=== PATIENT | male | born 1980 | race Caucasian/White ===

== ENCOUNTER 2016-03-06 16:41 | Emergency (ER) | payer SELFPAY ==
[~2016-03-06] VITALS: Ht 172.7 cm; Wt 70.0 kg
[~2016-03-06 16:41] MED LIST: PRIL40CA PO; ZOFR4TAB3 SL
[2016-03-06 16:48] VITALS: BP 127/76; PULSE 87; RESP 15; TEMP 98.2; O2SAT 97
--- NOTE | 2016-03-06 17:18 | PD ---
HPI Chief Complaint: Psychiatric Symptoms Time Seen by Provider: 17:13 Travel History International Travel<30 days: No Contact w/Intl Traveler<30days: No Traveled to known affect area: No History of Present Illness HPI 35-year-old male brought in under the ex parte act. Patient denies any medical or psychiatric issues at this time. Patient admits he had an argument with his father. Patient denies any medical issues. He has no known drug allergies. PFSH Past Medical History Medical History: Denies Significant Hx Past Surgical History Surgical History: No Previous Surgery Social History Alcohol Use: Yes Tobacco Use: Yes Substance Use: Yes (cocaine and meth) Allergies-Medications (Allergen,Severity, Reaction): Coded Allergies: No Known Allergies (Verified , 03/06/16) Reported Meds & Prescriptions Reported Meds & Active Scripts Active No Active Prescriptions or Reported Medications Review of Systems Except as stated in HPI: all other systems reviewed are Neg General / Constitutional: No: Fever Eyes: No: Visual changes HENT: No: Headaches Cardiovascular: No: Chest Pain or Discomfort Respiratory: No: Shortness of Breath Gastrointestinal: No: Abdominal Pain Genitourinary: No: Dysuria Musculoskeletal: No: Pain Skin: No Rash Neurologic: No: Weakness Psychiatric: No: Depression Endocrine: No: Polydipsia Hematologic/Lymphatic: No: Easy Bruising Physical Exam Narrative GENERAL: Patient appears in no acute distress. SKIN: Warm and dry. No signs of trauma. HEAD: Atraumatic. Normocephalic. EYES: Pupils equal and round. No scleral icterus. No injection or drainage. ENT: No nasal bleeding or discharge. Mucous membranes pink and moist. Pharynx is clear. NECK: Trachea midline. No JVD. CARDIOVASCULAR: Regular rate and rhythm. RESPIRATORY: No accessory muscle use. Clear to auscultation. Breath sounds equal bilaterally. MUSCULOSKELETAL: Extremities without clubbing, cyanosis, or edema. No obvious deformities. NEUROLOGICAL: Awake and alert. No obvious cranial nerve deficits. Motor grossly within normal limits. Five out of 5 muscle strength in the arms and legs. Normal speech. PSYCHIATRIC: Appropriate mood and affect; insight and judgment normal. Data Data Last Documented VS Vital Signs Date Time Temp Pulse Resp B/P Pulse Ox O2 Delivery O2 Flow Rate FiO2 03/06/16 16:48 98.2 87 15 127/76 97 Orders Complete Blood Count With Diff (03/06/16 17:12) Comprehensive Metabolic Panel (03/06/16 17:12) Drug Screen, Random Urine (03/06/16 17:12) Psych Screen (03/06/16 17:12) MDM Medical Decision Making Medical Screen Exam Complete: Yes Emergency Medical Condition: Yes Differential Diagnosis Ex Parte Act. Anger outburst. Possible mood disorder. Narrative Course Patient is medically stable at time of exam. Psychiatric labs ordered per protocol. Patient is medically stable for psychiatric evaluation. Diagnosis Primary Impression: Medical clearance for psychiatric admission Scripts No Active Prescriptions or Reported Meds Condition: Stable Nitin Yang Mar 06, 2016 17:18
[2016-03-06 18:25] LABS: BASOPHIL # 0.1 TH/MM3 (0-0.2); BASOPHIL % 0.8 % (0.0-2.0); EOSINOPHIL # 0.3 TH/MM3 (0-0.4); EOSINOPHIL % 3.9 % (0.0-4.0); HEMATOCRIT 40.6 % (39.0-51.0); HEMO FLAGS DIFF FINAL; LYMPHOCYTE # 1.9 TH/MM3 (1.0-4.8); MEAN CORPUSCULAR HGB CONC 33.7 % (32.0-36.0); MONO % 9.2 % (0.0-8.0); NEUT % 58.1 % (16.0-70.0); PLATELET COUNT 214 TH/MM3 (150-450); RED BLOOD COUNT 4.89 MIL/MM3 (4.50-5.90); RED CELL DISTRIBUTION WIDTH 15.5 % (11.6-17.2); WHITE BLOOD COUNT 6.9 TH/MM3 (4.0-11.0)
[2016-03-06 18:55] LABS: ALKALINE PHOSPHATASE 73 U/L (45-117); ALT (GPT) 809 U/L (12-78); ANION GAP 8 MEQ/L (5-15); AST (GOT) 607 U/L (15-37); BICARBONATE 28.4 MEQ/L (21.0-32.0); BLOOD UREA NITROGEN 16 MG/DL (7-18); CHLORIDE 104 MEQ/L (98-107); GLOMERULAR FILTRATION RATE 92 ML/MIN (>89); SODIUM (NA) 140 MEQ/L (136-145); TOTAL BILIRUBIN ADULT 0.2 MG/DL (0.2-1.0)
[2016-03-06 19:29] VITALS: BP 122/68; PULSE 64; RESP 16; O2SAT 98
[2016-03-06 21:03] VITALS: BP 133/66; PULSE 76; RESP 18; TEMP 97.6; O2SAT 99
[2016-03-06 21:41] LABS: AMPHETAMINE, URINE POS (NEG); BARBITURATES, URINE POS (NEG); COCAINE, URINE POS (NEG)
[2016-03-06 22:00] VITALS: BP 101/54; PULSE 77; RESP 19; O2SAT 99
[2016-03-07 02:01] VITALS: BP 104/61; PULSE 78; RESP 18; TEMP 97.3; O2SAT 100
[2016-03-07 06:21] VITALS: BP 114/59; PULSE 80; RESP 19; O2SAT 99
[2016-03-07 10:15] VITALS: BP 116/66; PULSE 96; RESP 18
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
== END 2016-03-07 13:52 | disposition home or self-care (01) ==
LOC: NEDAMB 16:41 → NEPJ 03-07 13:52
DX: F14.10 Cocaine abuse, uncomplicated (principal); F15.10 Other stimulant abuse, uncomplicated; F12.10 Cannabis abuse, uncomplicated; F13.10 Sedative, hypnotic or anxiolytic abuse, uncomplicated
CPT/HCPCS: 80053; 80307; 85025; 99284

== ENCOUNTER 2017-05-11 14:33 | Emergency (ER) | payer SELFPAY ==
[~2017-05-11] VITALS: Ht 170.2 cm; Wt 47.0 kg
[2017-05-11] MEDS ORDERED: SODIUM CHLOR 0.9% 1000 ML INJ 1,000 ML IV ONE (16:41)
[2017-05-11 16:43] VITALS: BP 128/61; PULSE 72; RESP 19; TEMP 98.6; O2SAT 98
[2017-05-11] MEDS ORDERED: SODIUM CHLORIDE 0.9% FLUSH 10 ML FLUSH IVF PRN (16:45)
[2017-05-11] MEDS ORDERED: NALOXONE HCL 2 MG/2 ML VIAL IV PUSH ONE (16:45)
--- NOTE | 2017-05-11 16:56 | PD ---
HPI Chief Complaint: OD/ Ingestion Time Seen by Provider: 16:41 Travel History International Travel<30 days: No Contact w/Intl Traveler<30days: No Traveled to known affect area: No History of Present Illness HPI 36-year-old male patient with history of IV drug use, presents to the ER today brought in by EMS, apparently had overdosed on heroin. He had been given Narcan by EMS several hours ago. Patient has been fairly noncooperative with EMS, gets agitated when awakened, refusing to answer questions. Modifying Factors: None Associated Signs & Symptoms: Heroin overdose Risk Factors: IV drug use [facility] Past Medical History Medical History: Denies Significant Hx Past Surgical History Surgical History: No Previous Surgery Social History Alcohol Use: Yes Tobacco Use: Yes Substance Use: Yes (HEROIN, METH) Allergies-Medications (Allergen,Severity, Reaction): Coded Allergies: No Known Allergies (Verified , 03/06/16) Reported Meds & Prescriptions Reported Meds & Active Scripts Active No Active Prescriptions or Reported Medications Review of Systems ROS Limitations: Uncooperative, Poor Historian Physical Exam Narrative GENERAL: Well-developed young male patient currently and mild distress. Sleeping, arousable, agitated. SKIN: Focused skin assessment warm/dry. HEAD: Abrasions over the nasal bridge, with obvious deformity of the nasal bridge. Normocephalic. EYES: Pupils equal and round. No scleral icterus. No injection or drainage. ENT: No nasal bleeding or discharge. Mucous membranes pink and moist. NECK: Trachea midline. No JVD. CARDIOVASCULAR: Regular rate and rhythm. No murmur appreciated. RESPIRATORY: No accessory muscle use. Clear to auscultation. Breath sounds equal bilaterally. GASTROINTESTINAL: Abdomen soft, non-tender, nondistended. Hepatic and splenic margins not palpable. MUSCULOSKELETAL: No obvious deformities. No clubbing. No cyanosis. No edema. NEUROLOGICAL: Somnolent, but arousable. No obvious cranial nerve deficits. Motor grossly within normal limits. Normal speech. PSYCHIATRIC: Somnolent, agitated when awoken, agitated mood and affect; insight and judgment poor Data Data Last Documented VS Vital Signs Date Time Temp Pulse Resp B/P (MAP) Pulse Ox O2 Delivery O2 Flow Rate FiO2 05/11/17 16:43 98.6 72 19 128/61 (83) 98 Room Air Orders Orders Electrocardiogram (05/11/17 16:41) Complete Blood Count With Diff (05/11/17 16:41) Comprehensive Metabolic Panel (05/11/17 16:41) Ct Brain W/O Iv Contrast(Rout) (05/11/17 16:41) Iv Access Insert/Monitor (05/11/17 16:41) Cath For Specimen (05/11/17 16:41) Ecg Monitoring (05/11/17 16:41) Oximetry (05/11/17 16:41) Naloxone Inj (Narcan Inj) (05/11/17 16:45) Sodium Chloride 0.9% Flush (Ns Flush) (05/11/17 16:45) Sodium Chlor 0.9% 1000 Ml Inj (Ns 1000 M (05/11/17 16:41) Drug Screen, Random Urine (05/11/17 16:41) Alcohol (Ethanol) (05/11/17 16:41) Tylenol (Acetaminophen) (05/11/17 16:41) Ct Facial Bones W/O Iv Cont (05/11/17 16:41) Labs Laboratory Tests Test 05/11/17 16:50 White Blood Count 7.6 TH/MM3 Red Blood Count 4.75 MIL/MM3 Hemoglobin 14.0 GM/DL Hematocrit 40.6 % Mean Corpuscular Volume 85.5 FL Mean Corpuscular Hemoglobin 29.4 PG Mean Corpuscular Hemoglobin Concent 34.4 % Red Cell Distribution Width 13.6 % Platelet Count 321 TH/MM3 Mean Platelet Volume 7.4 FL Neutrophils (%) (Auto) 46.7 % Lymphocytes (%) (Auto) 39.5 % Monocytes (%) (Auto) 10.0 % Eosinophils (%) (Auto) 2.9 % Basophils (%) (Auto) 0.9 % Neutrophils # (Auto) 3.5 TH/MM3 Lymphocytes # (Auto) 3.0 TH/MM3 Monocytes # (Auto) 0.8 TH/MM3 Eosinophils # (Auto) 0.2 TH/MM3 Basophils # (Auto) 0.1 TH/MM3 CBC Comment DIFF FINAL Differential Comment Blood Urea Nitrogen 11 MG/DL Creatinine 0.89 MG/DL Random Glucose 87 MG/DL Total Protein 7.6 GM/DL Albumin 3.6 GM/DL Calcium Level 9.0 MG/DL Alkaline Phosphatase 61 U/L Aspartate Amino Transf (AST/SGOT) 31 U/L Alanine Aminotransferase (ALT/SGPT) 24 U/L Total Bilirubin 0.5 MG/DL Sodium Level 138 MEQ/L Potassium Level 3.9 MEQ/L Chloride Level 101 MEQ/L Carbon Dioxide Level 28.1 MEQ/L Anion Gap 9 MEQ/L Estimat Glomerular Filtration Rate 97 ML/MIN Acetaminophen Level LESS THAN 2.0 MCG/ML Ethyl Alcohol Level LESS THAN 3 MG/DL MDM Medical Decision Making Medical Screen Exam Complete: Yes Emergency Medical Condition: Yes Medical Record Reviewed: Yes Interpretation(s) Laboratory Tests Test 05/11/17 16:50 Monocytes (%) (Auto) 10.0 % (0.0-8.0) Last [address] 05/11/17 1641 Signed Impressions: Service Date/Time: Thursday, May 11, 2017 17:15 - CONCLUSION: Unremarkable CT scan of the brain. Rosalio Guardado MD Differential Diagnosis Heroin overdose, rule out coingestions, rule out intracranial injuries Narrative Course CT the brain did not show any signs of acute intracranial injuries and facial bones not show any signs of acute fractures. His lab work was fairly unremarkable. Patient is arousable in the ER and does not have signs of respiratory distress so he was watched until sober. Planning to release once sober. Patient was reevaluated at 7 PM, awake, but trying to sleep, answering questions appropriately, and gets upset at me when I turn on the lights. He was seen by EMS at 1355, had taken heroin before that. Vital signs have been stable in the ER. My plan would be to release him at 8 PM. Diagnosis Primary Impression: Heroin overdose Scripts No Active Prescriptions or Reported Meds Disposition: 01 DISCHARGE HOME Condition: Stable Kai Worley MD May 11, 2017 16:56
[2017-05-11 17:15] LABS: AUTOMATED NEUTROPHIL # 3.5 TH/MM3 (1.8-7.7); BASOPHIL # 0.1 TH/MM3 (0-0.2); BASOPHIL % 0.9 % (0.0-2.0); EOSINOPHIL # 0.2 TH/MM3 (0-0.4); EOSINOPHIL % 2.9 % (0.0-4.0); HEMATOCRIT 40.6 % (39.0-51.0); LYMPH % 39.5 % (9.0-44.0); MEAN CELL VOLUME 85.5 FL (80.0-100.0); MEAN CORPUSCULAR HEMOGLOBIN 29.4 PG (27.0-34.0); MEAN CORPUSCULAR HGB CONC 34.4 % (32.0-36.0); MEAN PLATELET VOLUME 7.4 FL (7.0-11.0); MONOCYTE # 0.8 TH/MM3 (0-0.9); NEUT % 46.7 % (16.0-70.0); PLATELET COUNT 321 TH/MM3 (150-450); RED BLOOD COUNT 4.75 MIL/MM3 (4.50-5.90); RED CELL DISTRIBUTION WIDTH 13.6 % (11.6-17.2); WHITE BLOOD COUNT 7.6 TH/MM3 (4.0-11.0)
[2017-05-11 17:32] LABS: ALBUMIN 3.6 GM/DL (3.4-5.0); AST (GOT) 31 U/L (15-37); BICARBONATE 28.1 MEQ/L (21.0-32.0); BLOOD UREA NITROGEN 11 MG/DL (7-18); CHLORIDE 101 MEQ/L (98-107); CREATININE 0.89 MG/DL (0.60-1.30); GLOMERULAR FILTRATION RATE 97 ML/MIN (>89); GLUCOSE,RANDOM 87 MG/DL (74-106); SODIUM (NA) 138 MEQ/L (136-145)
--- NOTE | 2017-05-11 17:34 | RADRPT ---
EXAM DATE/TIME: 05/11/2017 17:15 [facility] COMPARISON: No previous studies available for comparison. INDICATIONS : Altered mental status. RADIATION DOSE: 36.53 CTDIvol (mGy) MEDICAL HISTORY : None SURGICAL HISTORY : None. ENCOUNTER: Initial ACUITY: 1 day PAIN SCALE: 0/10 LOCATION: cranial TECHNIQUE: Multiple contiguous axial images were obtained of the head. Using automated exposure control and adj ustment of the mA and/or kV according to patient size, radiation dose was kept as low as reasonably a chievable to obtain optimal diagnostic quality images. DICOM format image data is available electro nically for review and comparison. FINDINGS: CEREBRUM: The ventricles are normal for age. No evidence of midline shift, mass lesion, hemorrhage or acute in farction. No extra-axial fluid collections are seen. POSTERIOR FOSSA: The cerebellum and brainstem are intact. The 4th ventricle is midline. The cerebellopontine angle i s unremarkable. EXTRACRANIAL: The visualized portion of the orbits is intact. SKULL: The calvaria is intact. No evidence of skull fracture. CONCLUSION: Unremarkable CT scan of the brain. Rosalio Guardado MD on May 11, 2017 at 17:31 Board Certified Radiologist. This report was verified electronically.
[2017-05-11 17:36] LABS: ALKALINE PHOSPHATASE 61 U/L (45-117); ALT (GPT) 24 U/L (12-78); TOTAL BILIRUBIN ADULT 0.5 MG/DL (0.2-1.0); TOTAL PROTEIN 7.6 GM/DL (6.4-8.2)
--- NOTE | 2017-05-11 17:38 | RADRPT ---
EXAM DATE/TIME: 05/11/2017 17:15 [facility] COMPARISON: No previous studies available for comparison. INDICATIONS : Altered mental status. RADIATION DOSE: 52.84 CTDIvol (mGy) MEDICAL HISTORY : None SURGICAL HISTORY : None. ENCOUNTER: Initial ACUITY: 1 day PAIN SCORE: 0/10 LOCATION: facial TECHNIQUE: Volumetric scanning of the facial bones was performed. Using automated exposure control and adjustme nt of the mA and/or kV according to patient size, radiation dose was kept as low as reasonably achiev able to obtain optimal diagnostic quality images. DICOM format image data is available electronicall y for review and comparison. FINDINGS: ORBITS: The orbital and infraorbital osseous structures are intact. The retroconal structures have a normal configuration. No radiopaque foreign bodies are seen. NASAL BONE: The nasal bone and maxillary spine are intact ZYGOMATIC ARCHES: Symmetric without evidence of fracture. SINUSES: The maxillary, ethmoid and frontal sinuses are intact. No air-fluid levels seen. NASAL CAVITY: Mild nasal septal deviation to the left. SOFT TISSUES: No radiopaque foreign bodies seen. No soft-tissue swelling is seen. INTRACRANIAL: No intracranial air seen. CRIBIFORM PLATE: Grossly intact. CONCLUSION: No acute bony fractures. Rosalio Guardado MD on May 11, 2017 at 17:35 Board Certified Radiologist. This report was verified electronically.
[2017-05-11 18:06] LABS: ACETAMINOPHEN LESS THAN 2.0 MCG/ML (10.0-30.0)
--- NOTE | 2017-05-12 20:43 | EKG ---
Date Performed: 05/11/2017 Time Performed: 16:57:16 PTAGE: 36 years EKG: Sinus rhythm WITH SINUS ARRHYTHMIA NORMAL ECG PREVIOUS TRACING : 03/28/2001 02.19 Compared to previous tracing SINUS TACHYCARDIA IS NO LONGER PRESENT DOCTOR: Griffin Purcell Interpretating Date/Time 05/12/2017 20:42:04
== END 2017-05-11 19:07 | disposition left against medical advice (07) ==
LOC: NEPC 14:33
DX: T40.1X1A Poisoning by heroin, accidental (unintentional), initial encounter (principal); I49.8 Other specified cardiac arrhythmias; Z72.0 Tobacco use
CPT/HCPCS: 70450; 70486; 80053; 80307; 85025; 93005; 96361; 96374; 99285; J2310; J7030

== ENCOUNTER 2017-06-14 18:09 | Emergency (ER) | payer OTHER ==
[~2017-06-14] VITALS: Ht 170.2 cm; Wt 60.0 kg
[2017-06-14 18:17] VITALS: BP 147/86; PULSE 92; RESP 18; O2SAT 99
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
[2017-06-14] MEDS ORDERED: ACETAMINOPHEN 325 MG TAB PO ONE (18:45)
[2017-06-14] MEDS ORDERED: SODIUM CHLORIDE 0.9% FLUSH 10 ML FLUSH IVF PRN (18:45)
[2017-06-14 19:22] LABS: AUTOMATED NEUTROPHIL # 7.2 TH/MM3 (1.8-7.7); BASOPHIL # 0.1 TH/MM3 (0-0.2); BASOPHIL % 0.6 % (0.0-2.0); EOSINOPHIL # 0.1 TH/MM3 (0-0.4); HEMATOCRIT 44.2 % (39.0-51.0); HEMOGLOBIN 14.9 GM/DL (13.0-17.0); LYMPH % 24.4 % (9.0-44.0); LYMPHOCYTE # 2.6 TH/MM3 (1.0-4.8); MEAN CELL VOLUME 85.3 FL (80.0-100.0); MEAN CORPUSCULAR HEMOGLOBIN 28.7 PG (27.0-34.0); MEAN CORPUSCULAR HGB CONC 33.7 % (32.0-36.0); MEAN PLATELET VOLUME 7.9 FL (7.0-11.0); MONO % 5.7 % (0.0-8.0); MONOCYTE # 0.6 TH/MM3 (0-0.9); NEUT % 68.3 % (16.0-70.0); PLATELET COUNT 328 TH/MM3 (150-450); RED BLOOD COUNT 5.19 MIL/MM3 (4.50-5.90); RED CELL DISTRIBUTION WIDTH 12.9 % (11.6-17.2); WHITE BLOOD COUNT 10.5 TH/MM3 (4.0-11.0)
--- NOTE | 2017-06-14 19:32 | RADRPT ---
EXAM DATE/TIME: 06/14/2017 19:11 [facility] COMPARISON: No previous studies available for comparison. INDICATIONS : Chest pain. MEDICAL HISTORY : None. SURGICAL HISTORY : None. ENCOUNTER: Initial ACUITY: 1 week PAIN SCORE: 4/10 LOCATION: middle chest FINDINGS: PA and lateral views of the chest demonstrate the lungs to be symmetrically aerated without evidence of mass, infiltrate or effusion. The cardiomediastinal contours are unremarkable. Osseous structure s are intact. CONCLUSION: No acute cardiopulmonary disease. Nolan Shaver MD on June 14, 2017 at 19:30 Board Certified Radiologist. This report was verified electronically.
[2017-06-14 19:37] LABS: INTERNATIONAL NORMALIZED RATIO 1.8 RATIO; PROTHROMBIN TIME - PATIENT 18.1 SEC (9.8-11.6)
[2017-06-14 19:42] LABS: ALBUMIN 3.9 GM/DL (3.4-5.0); AST (GOT) 34 U/L (15-37); BICARBONATE 27.2 MEQ/L (21.0-32.0); BLOOD UREA NITROGEN 8 MG/DL (7-18); CALCIUM 9.3 MG/DL (8.5-10.1); CHLORIDE 107 MEQ/L (98-107); CREATININE 0.98 MG/DL (0.60-1.30); GLOMERULAR FILTRATION RATE 87 ML/MIN (>89); GLUCOSE,RANDOM 83 MG/DL (74-106); MAGNESIUM 2.4 MG/DL (1.5-2.5); SODIUM (NA) 140 MEQ/L (136-145)
[2017-06-14 19:43] LABS: ALT (GPT) 35 U/L (12-78)
[2017-06-14 19:46] LABS: D-DIMER 0.24 MG/L FEU (0.00-0.50)
[2017-06-14 19:47] LABS: ALKALINE PHOSPHATASE 64 U/L (45-117); TOTAL BILIRUBIN ADULT 0.5 MG/DL (0.2-1.0); TOTAL PROTEIN 7.9 GM/DL (6.4-8.2); TROPONIN I LESS THAN 0.02 NG/ML (0.02-0.05)
--- NOTE | 2017-06-14 21:55 | EKG ---
Date Performed: 06/14/2017 Time Performed: 18:18:03 PTAGE: 36 years EKG: SINUS TACHYCARDIA MINIMAL VOLTAGE CRITERIA FOR LVH, CONSIDER NORMAL VARIANT ABNORMAL RHYTHM ECG PREVIOUS TRACING : 05/11/2017 16.57 Compared to previous tracing, minimal voltage criteria for LVH is now present. DOCTOR: Terrell Aguilera Interpretating Date/Time 06/14/2017 21:53:46
== END 2017-06-14 20:52 | disposition home or self-care (01) ==
LOC: NEPD 18:09
DX: R79.1 Abnormal coagulation profile (principal); R07.9 Chest pain, unspecified; R00.0 Tachycardia, unspecified; Z72.0 Tobacco use
CPT/HCPCS: 71046; 80053; 82550; 82552; 83735; 84484; 85025; 85379; 85610; 85730; 93005